=== PATIENT | female | born 1960 | race Caucasian/White ===

== ENCOUNTER → 2017-05-13 | Outpatient (CLI) | payer OTHER ==
[~2017-05-13] VITALS: Ht 157.5 cm; Wt 58.0 kg
[~2017-05-13] MED LIST: ACTONEL35 MG PO; BAYER CHEWABLE81 MG PO; CELEBREX100 MG PO; CHOLESTEROL MED; CITALOPRAM HBR10 MG PO; LEVAQUIN500 MG PO; LEVOTHYROXINE50 MCG PO; LYRICA50 MG PO; MULTIVITAMIN1 EAC2 PO; OMEPRAZOLE40 M1 PO; PHENERGAN25 MG PR; PRAVACHOL40 MG PO; PRAVASTATIN SOD10 MG PO; PRAVASTATIN SOD20 MG PO; RECLAST5 MG/100 M IV; REGLAN5 MG PO; ROXICODONE5 MG PO; SPIRIVA1 INHALATI IH; SPIRIVA18 MCG IH; TRAMADOL HCL50 MG PO; TYLENOL REGULA325 MG PO; VITAMIN D-32000 UNI2 PO; ZANTAC300 MG PO
[2017-05-13 11:14] VITALS: BP 117/67
== END | disposition home or self-care (01) ==
LOC: IVINF 05-05 09:30
DX: M81.0 Age-related osteoporosis without current pathological fracture (principal)
CPT/HCPCS: 96365; J3489